=== PATIENT | male | born 1995 | race Caucasian/White ===

== ENCOUNTER 2018-11-25 13:10 | Inpatient (IN) | payer OTHER, SELFPAY ==
[2018-11-25] MEDS ORDERED: Fentanyl 100 MCG/2 ML VIAL ONE ×3 (13:32→21:15)
[2018-11-25] MEDS ORDERED: Ketorolac Tromethamine 30 MG/ML VIAL ONE (14:25)
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
[2018-11-25] MEDS ORDERED: Bacitracin 1 PK ONE (15:21)
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
[2018-11-25] MEDS ORDERED: Sodium Chloride 0.9% 10 ML ONE (18:20)
[2018-11-25] MEDS ORDERED: Fentanyl 250 MCG/5 ML VIAL ONE (18:43)
[2018-11-25] MEDS ORDERED: Midazolam HCl 2 mg/2 ml Vial ONE (18:50)
[2018-11-25] MEDS ORDERED: Bupivacaine HCl 0.5%/Epinephrine 1:200,000/PF 30 ml Vial ONE (19:40)
[2018-11-25] MEDS ORDERED: HYDROmorphone 2 MG/ML VIAL ONE (20:23)
--- NOTE | 2018-11-25 20:24 | RAD ---
Exam: Left knee 2 views: HISTORY: Postop ORIF 2 portable fluoroscopic spot images demonstrate placement of lateral metal plate and screws stabilizi ng the proximal tibia. No significant malalignment. IMPRESSION: Status post ORIF internal fixation of the proximal tibia.
[2018-11-25] MEDS ORDERED: Ondansetron ODT 4 MG TAB PO PRN (20:38)
[2018-11-25] MEDS ORDERED: HYDROcodone/Acetaminophen 10/325 mg Tablet PO PRN ×4 (20:38→20:40)
[2018-11-25] MEDS ORDERED: HYDROmorphone 2 MG/ML VIAL SLOW IVP PRN (20:41)
[2018-11-25] MEDS ORDERED: Ondansetron HCl/PF 4 MG/2 ML Vial IVP PRN (20:41)
[2018-11-25] MEDS ORDERED: Promethazine HCl 25 MG/ML VIAL SLOW IVP PRN (20:41)
[2018-11-25] MEDS ORDERED: Promethazine HCl 25 MG/ML VIAL IM PRN (20:41)
[2018-11-25] MEDS ORDERED: Enoxaparin Sodium 40 MG/0.4 ML SYRINGE SC SCH (21:30)
[2018-11-25] MEDS: CEFAZOLIN 2 GM in Premix Bag 1 BAG IVPB SCH (23:16)
[2018-11-26 05:35] VITALS: BMI 26.2
[2018-11-26] MEDS: CEFAZOLIN 2 GM in Premix Bag 1 BAG IVPB SCH (05:56)
[2018-11-26 11:19] VITALS: BP 136/80; TEMP 98.3
--- NOTE | 2018-11-27 10:58 | OP ---
DATE OF PROCEDURE: 11/25/2018 PREOPERATIVE DIAGNOSIS: Displaced intercondylar tibial plateau fracture. POSTOPERATIVE DIAGNOSES: Displaced intercondylar tibial plateau fracture with lateral meniscus tear. SKID ROAD WORKER: Emile Rubio PA-C BLOOD LOSS: Minimal. SPECIMEN: None. COMPLICATION: None. DESCRIPTION OF PROCEDURE: The patient was taken to the operating room where general anesthesia induced. Left leg was prepped and draped in usual sterile fashion. After exsanguination of tourniquet to 300 mmHg, I made an anterolateral incision, dissected down to the tibia and elevated the anterior compartment. I opened up the joint line where there was a massive hemarthrosis. Irrigation was performed. Tibial lateral cartilage was probed and elevated. We placed a Synthes 3.5 locking plate for tibial plateau on the bone. I placed screw across proximally and distally and confirmed good placement of the hardware and anatomic reduction of the fracture was confirmed on x-ray. I did use conical screws to compress the fracture. I used mixture of conical screws and locking screws as well as plain bone screws in the shaft to maintain anatomic reduction of the tibia. Irrigation was performed of the joint again. The lateral meniscus was repaired with multiple sutures of #1 Ethibond. The tourniquet was released. Irrigation was performed. The fascia was repaired with #1 Vicryl, subcutaneous closed with 0 Vicryl and skin was closed with emily. Sterile dressings applied. Job ID: [id number]
== END 2018-11-26 11:35 | disposition home or self-care (01) | DRG 489 ==
LOC: ERS 13:10 → SURG A 20:38
PROVIDERS: ADMIT Orthopaedic Surgery; ATTEND Orthopaedic Surgery
PROC: 0QSH04Z Reposition Left Tibia with Internal Fixation Device, Open Approach (ICD-10-PCS; principal; 2018-11-25)
PROC: 0SQD0ZZ Repair Left Knee Joint, Open Approach (ICD-10-PCS; 2018-11-25)
DX: S82.142A Displaced bicondylar fracture of left tibia, initial encounter for closed fracture (principal); S83.282A Other tear of lateral meniscus, current injury, left knee, initial encounter; G43.909 Migraine, unspecified, not intractable, without status migrainosus; F90.9 Attention-deficit hyperactivity disorder, unspecified type; F17.210 Nicotine dependence, cigarettes, uncomplicated; V89.2XXA Person injured in unspecified motor-vehicle accident, traffic, initial encounter; Y92.410 Unspecified street and highway as the place of occurrence of the external cause
CPT/HCPCS: 70450; 71045; 71260; 72125; 74177; 76000; G0390; J0670; J0690; J1170; J1650; J1885; J2250; J3010

== ENCOUNTER 2018-11-27 02:54 | Observation (INO) | payer SELFPAY ==
[2018-11-27] MEDS ORDERED: Morphine 4 MG/ML VIAL ONE (04:51)
[2018-11-27] MEDS ORDERED: Promethazine HCl 25 MG/ML VIAL IVPB PRN (05:05)
[2018-11-27] MEDS ORDERED: Ondansetron PF 4 MG/2 ML Vial IVP PRN (05:05)
[2018-11-27] MEDS ORDERED: Dextrose 5% in Water 1,000 ML IV PRN (05:05)
[2018-11-27] MEDS ORDERED: hydrALAZINE 20 MG/ML VIAL SLOW IVP PRN (05:05)
[2018-11-27] MEDS ORDERED: Dextrose 50% Abboject 50 ML SYRINGE SLOW IVP PRN (05:05)
[2018-11-27] MEDS ORDERED: traMADol HCl 50 MG TAB PO PRN ×2 (05:08)
[2018-11-27] MEDS ORDERED: Acetaminophen 500 MG TAB PO SCH (05:15)
[2018-11-27 05:56] LABS: Anion Gap 10 mmol/L (10-20); BUN (Urea Nitrogen) 9 mg/dL (8.9-20.6); Calc. Creatinine Clearance 0 mL/min (70-130); Calcium 8.2 mg/dL (7.8-10.44); Carbon Dioxide 24 mmol/L (22-29); Chloride 108 mmol/L (98-107); Estimated GFR-MDRD Greater than 90; Glucose 99 mg/dL (70-105); Magnesium 1.9 mg/dL (1.6-2.6); Phosphorus 2.7 mg/dL (2.3-4.7); Potassium 3.8 mmol/L (3.5-5.1); Sodium 138 mmol/L (136-145)
[2018-11-27] MEDS: Ibuprofen 800 MG TAB PO SCH ×2 (06:29→14:00)
[2018-11-27] MEDS: Cyclobenzaprine 10 MG TAB PO PRN ×2 (06:34→15:56)
[2018-11-27 06:39] VITALS: BMI 25.8
[2018-11-27] MEDS ORDERED: Polyethylene Glycol 3350 17 GM Packet PO SCH (09:00)
[2018-11-27] MEDS ORDERED: Senokot S 8.6-50 MG TAB PO SCH (09:00)
[2018-11-27] MEDS: Gabapentin 300 MG CAP PO SCH ×2 (09:06→14:00)
--- NOTE | 2018-11-27 09:20 | ULT ---
PRELIMINARY REPORT/[facility]/EMERGENCY AFTER HOURS PROCEDURE: PROCEDURE INFORMATION: Exam: US Duplex Left Lower Extremity Veins, Limited Exam date and time: 11/27/2018 3:19 AM Clinical history: 23 years old, male; Other: Pain swelling lle; Prior surgery; Surgery date: 3-7 days post-operative; Surgery type: Lt knee surg TECHNIQUE: Imaging protocol: Real-time Duplex ultrasound of the Left Lower Extremity with 2-D posadas scale, color Doppler flow and spectral waveform analysis with image documentation. Limited exam focused on the lef t lower extremity veins. COMPARISON: No relevant prior studies available. FINDINGS: Left deep veins: Unremarkable. The common femoral, femoral, proximal profunda femoral and popliteal v eins are patent without thrombus. Normal Doppler waveforms. Normal compressibility and/or augmentatio n response. Left superficial veins: Unremarkable. Saphenofemoral junction is patent without thrombus. Soft tissue s: Unremarkable. IMPRESSION: No acute findings. No evidence of deep vein thrombosis. Thank you for allowing us to participate in the care of your patient. Dictated and Authenticated by: Ruperto Negron MD 11/27/2018 3:46 AM Central Time ([place] & [place]) FINAL REPORT LEFT LOWER EXTREMITY VENOUS ULTRASOUND WITH DOPPLER: HISTORY: Pain. Swelling. TECHNIQUE: Posadas scale, color flow, Doppler imaging with spectral waveform analysis was performed of the left low er extremity venous system. FINDINGS: There is compressibility, presence of flow, and augmentation in the visualized left lower extremity s uperficial and deep venous system. IMPRESSION: This report is in agreement with the preliminary report by [facility]. No evidence of a deep vein thrombus. POS: [facility]
[2018-11-27] MEDS ORDERED: HYDROcodone/Acetaminophen 5/325 mg Tablet PO PRN (11:08)
[2018-11-27 11:54] VITALS: BP 122/74; TEMP 98.2
[2018-11-27] MEDS ORDERED: Acetaminophen 325 MG TAB PO SCH (12:00)
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
[2018-11-27] MEDS ORDERED: Aspirin 81 mg Enteric Coated Tablet PO SCH (21:00)
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
== END 2018-11-27 16:30 | disposition home or self-care (01) ==
LOC: ERS 02:54 → SURG A 04:50
PROVIDERS: ADMIT Surgery; ATTEND Surgery
DX: M79.605 Pain in left leg (principal); G89.11 Acute pain due to trauma; S60.512A Abrasion of left hand, initial encounter; F17.210 Nicotine dependence, cigarettes, uncomplicated
CPT/HCPCS: 80048; 83735; 84100; 86140; 96374; G0378; J2270

== ENCOUNTER 2020-04-13 21:50 | Emergency (ER) | payer SELFPAY ==
[2020-04-13] MEDS ORDERED: Lidocaine Viscous Sol 2% 15 ml UD Cup ONE (23:25)
[2020-04-13] MEDS ORDERED: Mag-Al 1200 mg/1200 mg/30 ML UDCUP ONE (23:25)
[2020-04-14 04:25] LABS: SARS-CoV-2 PCR by NAA Not Detected (NotDetected)
== END 2020-04-14 02:04 | disposition home or self-care (01) ==
LOC: ERS 21:50
DX: H60.93 Unspecified otitis externa, bilateral (principal); K02.9 Dental caries, unspecified
CPT/HCPCS: 87635; 99283; U0003; U0005

== ENCOUNTER 2020-11-01 12:28 | Emergency (ER) | payer SELFPAY ==
[2020-11-01 13:53] LABS: #Lymphocytes 1.6 thou/uL (1.20-3.40); #Monocytes 0.7 thou/uL (0.11-0.59); %Basophils 0.4 % (0.0-1.0); %Eosinophils 0.4 % (0.0-10.0); %Lymphocytes 13.9 % (21.0-51.0); %Monocytes 6.4 % (0.0-10.0); %Neutrophils 78.9 % (42.0-75.0); Hemoglobin 15.6 g/dL (14.0-18.0); Mean Corpuscular Hemoglobin 32.7 pg (27.0-31.0); Mean Corpuscular Volume 93.4 fL (78.0-98.0); Platelet Count 342 thou/uL (130-400); RBC Distribution Width 11.8 % (11.5-14.5); Red Blood Cell (RBC) Count 4.76 mill/uL (4.70-6.10); White Blood Cell (WBC) Count 11.4 thou/uL (4.8-10.8)
[2020-11-01 14:16] LABS: ALT (SGPT) 13 U/L (8-55); AST (SGOT) 32 U/L (5-34); Albumin 4.8 g/dL (3.5-5.0); Alkaline Phosphatase 74 U/L (40-110); Anion Gap 16 mmol/L (10-20); BUN (Urea Nitrogen) 14 mg/dL (8.9-20.6); Bilirubin, Total 0.7 mg/dL (0.2-1.2); Calc. Creatinine Clearance 0 mL/min (70-130); Calcium 9.8 mg/dL (7.8-10.44); Carbon Dioxide 23 mmol/L (22-29); Chloride 100 mmol/L (98-107); Globulin 2.6 g/dL (2.4-3.5); Glucose 163 mg/dL (70-105); Lipase 27 U/L (8-78); Potassium 4.1 mmol/L (3.5-5.1); Protein, Total 7.4 g/dL (6.0-8.3); Sodium 135 mmol/L (136-145)
[2020-11-01] MEDS ORDERED: Ondansetron ODT 4 MG TAB ONE (16:20)
[2020-11-01] MEDS ORDERED: Mag-Al 1200 mg/1200 mg/30 ML UDCUP ONE (16:22)
[2020-11-01] MEDS ORDERED: Lidocaine Viscous Sol 2% 15 ml UD Cup ONE (16:22)
[2020-11-01 17:03] LABS: Prothrombin Time 13.3 sec (12.0-14.7)
[2020-11-01 17:04] LABS: PTT 28.1 sec (22.9-36.1)
[2020-11-01 17:48] LABS: Bilirubin Negative (Negative); Blood, Urine Negative (Negative); Clarity Clear (Clear); Glucose, Urine (Dipstick) Normal (Negative); Ketone, Urine Negative (Negative); Leukocyte Negative Leu/uL (Negative); Nitrite Negative (Negative); Protein, Urine (Dipstick) Negative (Neg-Trace); Specific Gravity, Urine 1.025 (1.002-1.036); Urobilinogen Normal mg/dL (Less than 2); pH, Urine 5.5 (5.0-9.0)
== END 2020-11-01 18:32 | disposition home or self-care (01) ==
LOC: ERS 12:28
DX: J02.9 Acute pharyngitis, unspecified (principal); J45.909 Unspecified asthma, uncomplicated; G43.909 Migraine, unspecified, not intractable, without status migrainosus; K21.9 Gastro-esophageal reflux disease without esophagitis; F17.210 Nicotine dependence, cigarettes, uncomplicated; Z79.899 Other long term (current) drug therapy
CPT/HCPCS: 36415; 71045; 80053; 81003; 83690; 85025; 85610; 85730; Q0162